=== PATIENT | female | born 1955 | race Asian ===

== ENCOUNTER 2017-02-07 06:57 | Day surgery (SDC) | payer OTHER ==
[~2017-02-07] VITALS: Ht 165.1 cm; Wt 64.0 kg
[2017-02-07 07:05] VITALS: BP 148/92; PULSE 80; RESP 19; Ht 165.1 cm; Wt 64.0 kg
[2017-02-07] MEDS ORDERED: LOSA50TA6 PO (07:21)
[2017-02-07] MEDS ORDERED: AMLO5TAB4 PO (07:21)
[2017-02-07] MEDS ORDERED: SOD CHLORIDE 0.9% 1,000 ML IV SCH (08:00)
[2017-02-07] MEDS ORDERED: LIDOCAINE 1% (MDV) 20 ML INJ ONE ×2 (10:00→10:10)
[2017-02-07] MEDS ORDERED: MIDAZOLAM 1 MG/ML 2 ML INJ ONE (10:11)
[2017-02-07] MEDS ORDERED: CEFAZOLIN 1 GM/50 ML (PMX) 50 ML IVPB ONE (10:11)
[2017-02-07] MEDS ORDERED: FENTAnyl 50 MCG/ML VIAL ONE (10:11)
[2017-02-07 11:39] VITALS: BP 128/76; PULSE 72; RESP 14
[2017-02-07 11:55] VITALS: BP 119/63; PULSE 70; RESP 18
--- NOTE | 2017-02-07 11:55 | RADRPT ---
PROCEDURE: CT guided pelvic abscess drainage. CLINICAL INDICATION: Pelvic abscess. TECHNIQUE: Informed consent was obtained. The procedure, risks, benefits, complications and alternatives were explained to the patient. Risks including bleeding and infection were explained. The patient underst ood and was willing to proceed. A procedural pause was performed. The patient's name, date of , and procedure to be performed were verified. One or more of the following dose reduction techn iques were used: Automated exposure control, adjustment of the mA and/or kV according to patient siz e, use of iterative reconstruction technique. Using local anesthetic, sterile technique and CT guidance, a 19-gauge Yueh needle was advanced into the fluid collection in the pelvis anterior to the bladder. CT scan was performed confirming positi on. Greenish brown fluid was also aspirated confirming position. The needle from the Yueh catheter was removed, leaving the Yueh catheter in place within the abscess. A 0.035-inch Amplatz guidewire was advanced through the Yueh catheter into the abscess. The Yueh catheter was removed. The tract was dilated to 8-Tanzanian. An 8.5 Tanzanian multipurpose drainage catheter was advanced over the guidew malachi into the abscess. The guidewire was removed. Additional scanning was performed confirming posi tion. The catheter was then sutured to the patient's skin with 2-0 silk. Approximately 39 ml of pu s was aspirated. The catheter was connected to a drainage bag. A dressing was applied. The patient tolerated procedure well. COMPARISON: None. FINDINGS: Final images demonstrate the drainage catheter in satisfactory position within the pelvic abscess. IMPRESSION: 1. Successful CT guided pelvic abscess drainage. RPTAT: QQ .Ted Morataya MD, Date Time Electronically viewed and signed by .Ted Morataya MD, MD on 02/07/2017 11:55 .R/
[2017-02-07] MEDS ORDERED: HYDROCODONE/APAP (5/325) TAB PO PRN (12:30)
== END 2017-02-07 13:46 | disposition home or self-care (01) ==
LOC: SDS 06:57
PROVIDERS: ATTEND Surgery
DX: N73.9 Female pelvic inflammatory disease, unspecified (principal)
CPT/HCPCS: 49406; 87070; 87075; J0690; J2250; J3010; Z7610; 75989; 77012